=== PATIENT | male | born 1975 | race Two or more races ===

== ENCOUNTER 2016-06-11 06:02 | Emergency (ER) | payer OTHER ==
[~2016-06-11] VITALS: Ht 167.6 cm; Wt 111.1 kg
[2016-06-11 06:30] VITALS: BP 151/93
[2016-06-11] MEDS ORDERED: methylPREDNISolone SOD SUCC 125 MG/2 ML VL IM ONE (08:45)
[2016-06-11] MEDS ORDERED: cefTRIAXone SOD 1,000 MG VL IM ONE (08:45)
== END 2016-06-11 09:17 | disposition home or self-care (01) ==
LOC: ER 06:08
DX: J03.90 Acute tonsillitis, unspecified (principal)
CPT/HCPCS: 96372; 99284; J0696; J2930